=== PATIENT | female | born 1995 | race Caucasian/White ===

== ENCOUNTER 2018-12-17 02:32 | Emergency (ER) | payer OTHER ==
[2018-12-17 03:08] VITALS: TEMP 98.3; BMI 25.4
[2018-12-17] MEDS ORDERED: SODIUM CHLORIDE 1,000 ML IV STA (03:20)
[2018-12-17] MEDS ORDERED: KETOROLAC TROMETHAMINE 30 MG/1 ML VIAL IVPUSH ONE (03:20)
--- NOTE | 2018-12-17 03:26 | PDOC ---
History of Present Illness - General Chief Complaint: Pain Stated Complaint: ABD PAIN Time Seen by Provider: 12/17/18 03:13 History Source: Patient Exam Limitations: No Limitations - History of Present Illness Initial Comments: 23 yo F who denies having any pmh presents to the ER with 3 hours of suprapubic/ lower abdominal pain which radiates to her back. She describes the pain as very sharp in character. She has never felt lower abdominal pain like this before and was very concerned so she came to the ER to be evaluated. The patient states she thinks she is on her period now and she thinks she is having really bad period pains but came to the Er to be evaluated because her period pains have never been this bad before. She states this pain has also made her feel nauseous and she vomited here in the ER. The vomitus was NBNB. LMP: 1 month ago PCP: Justino White PSH: None reported Social Hx: Denies smoking, drinking, or other substance usage. Allergies: NKA, NKDA Past History - Past Medical History Allergies/Adverse Reactions: Allergies Allergy/AdvReac Type Severity Reaction Status Date / Time No Known Allergies Allergy Verified 12/17/18 03:08 Home Medications: Ambulatory Orders Aspirin Coated [Ecotrin -] 234 mg PO ONCE 12/17/18 - Suicide/Smoking/Psychosocial Hx Smoking History: Never smoked Have you smoked in the past 12 months: No Information on smoking cessation initiated: No Hx Alcohol Use: No Drug/Substance Use Hx: No Review of Systems - Review of Systems Able to Perform ROS?: Yes Comments:: CONSTITUTIONAL: Absent: fever, no chills, no fatigue EYES: Absent: visual changes ENT: Absent: ear pain, no sore throat CARDIOVASCULAR: Absent: chest pain, no palpitations RESPIRATORY: Absent: cough, no SOB GI: Present: Abdominal pain, nausea, vomiting. Absent: no constipation, no diarrhea GENITOURINARY: Present: hematuria Absent: dysuria, no frequency MUSKULOSKELETAL: Present: back pain Absent: no arthralgia, no myalgia SKIN: Absent: rash NEURO: Absent: headache *Physical Exam - Vital Signs Last Vital Signs Temp Pulse Resp BP Pulse Ox 98.3 F 72 19 130/97 99 12/17/18 02:32 12/17/18 02:32 12/17/18 02:32 12/17/18 02:32 12/17/18 02:32 - Physical Exam Comments: GENERAL: Well-appearing, well-nourished. No apparent distress. HEENT: Normocephalic, atraumatic. PERRL, EOM intact. CARDIOVASCULAR: Normal S1, S2. Regular rate and rhythm. PULMONARY: No evidence of respiratory distress. Lungs clear to auscultation bilaterally. No wheezing, rales or rhonchi. ABDOMEN: Mild suprapubic and RLQ TTP. Abdomen is still soft, non-distended, and has normal bowel sounds. No rebound or guarding. EXTREMITIES: Normal ROM in all four extremities. No gross deformities. SKIN: Warm, dry. No rash NEUROLOGICAL: No focal neurological deficits. PATIENT REFUSED PELVIC EXAM ED Treatment Course - LABORATORY CBC & Chemistry Diagram: 12/17/18 03:38 12/17/18 03:38 Medical Decision Making - Medical Decision Making 23 yo F who denies having any pmh presents to the ER with 3 hours of suprapubic/ lower abdominal pain which radiates to her back. She describes the pain as very sharp in character. She has never felt lower abdominal pain like this before and was very concerned so she came to the ER to be evaluated. The patient states she thinks she is on her period now and she thinks she is having really bad period pains but came to the Er to be evaluated because her period pains have never been this bad before. She states this pain has also made her feel nauseous and she vomited here in the ER. The vomitus was NBNB. LMP: 1 month ago Vital Signs Temp Pulse Resp BP Pulse Ox 98.3 F 72 19 130/97 99 12/17/18 02:32 12/17/18 02:32 12/17/18 02:32 12/17/18 02:32 12/17/18 02:32 DDx IBNLT: - IUP vs ectopic, UTI/Pylo, menstrual cramps, STD Plan: Labs, Urine, CTAP, analgesia, IV hydration, re-assess. CTAP: normal Labs: Unremarkable HCG negative Patient feels better after analgesia and requests to be discharged. - Will send her home with PCP fu. *DC/Admit/Observation/Transfer Diagnosis at time of Disposition: Menstrual cramp - Discharge Dispostion Disposition: HOME Condition at time of disposition: Improved Decision to Admit order: No - Referrals Referrals: Justino White PA [Primary Care Provider] - - Patient Instructions Printed Discharge Instructions: DI for Dysmenorrhea Additional Instructions: You came into the ER with lower abdominal pain. We looked at your blood and urine and found no abnormalities. We did a cat scan of your abdomen which was normal. Take motrin as needed for pain control. Come back to the ER immediately if your pain worsens, you get a fever, or have any other new or worsening concerns. Thank you for coming to the [facility] ER. We hope you feel better soon! Print Language: AZERI - Post Discharge Activity
[2018-12-17] MEDS ORDERED: KETOROLAC TROMETHAMINE 30 MG/1 ML VIAL ONE (03:32)
[2018-12-17 04:01] LABS: EPI CELLS 0.9 /HPF (0-5/HPF); HYALINE CASTS 0 /lpf (0-8); PH,URINE 5.5 (5.0-8.0); URINE APPEARANCE CLEAR; URINE BACTERIA 24.4 /hpf (NEGATIVE); URINE BILIRUBIN NEGATIVE (NEGATIVE); URINE COLOR YELLOW; URINE GLUCOSE (UA) NEGATIVE (NEGATIVE); URINE KETONE NEGATIVE (NEGATIVE); URINE LEUK ESTERASE NEGATIVE (NEGATIVE); URINE NITRITE NEGATIVE (NEGATIVE); URINE PROTEIN NEGATIVE (NEGATIVE); URINE RBC 787 /hpf (0-4); URINE UROBILINOGEN 0.2 mg/dL (0.2-1.0); URINE WBC 3 /hpf (0-5)
[2018-12-17 04:02] LABS: HEMOGLOBIN 12.3 GM/dL (10.7-15.3)
[2018-12-17 04:09] LABS: BASO % 0.7 % (0-2.0); EOS % 3.8 % (0-4.5); HEMATOCRIT 39.1 % (32.4-45.2); LYMPH % 17.9 % (8-40); MCH 23.6 pg (25.7-33.7); MCHC 31.4 g/dl (32.0-36.0); MEAN PLT VOLUME 8.8 fl (7.5-11.1); NEUT % 70.6 % (42.8-82.8); PLATELET COUNT 390 K/MM3 (134-434); RBC 5.21 M/mm3 (3.60-5.2); WHITE BLOOD COUNT 9.5 K/mm3 (4.0-10.0)
[2018-12-17 04:10] LABS: HCG,QUALITATIVE URINE Negative
[2018-12-17 04:25] LABS: ALBUMIN 3.7 g/dl (3.4-5.0); BILIRUBIN,TOTAL 0.2 mg/dL (0.2-1); CALCIUM 9.1 mg/dL (8.5-10.1); CREATININE 0.6 mg/dL (0.55-1.3); POTASSIUM 4.3 mmol/L (3.5-5.1); TOT PROT 7.9 g/dl (6.4-8.2)
--- NOTE | 2018-12-17 05:23 | PDOC ---
Attending Attestation - Resident Resident Name: Hal Hollis - ED Attending Attestation I have performed the following: I have examined & evaluated the patient, The case was reviewed & discussed with the resident, I agree w/resident's findings & plan - HPI HPI: 12/17/18 05:20 23-year-old female with pelvic pain, right greater than left radiating into the back Patient states that she's had painful menstrual periods in the past but this feels worse. There is no associated fever or vomiting. - Physicial Exam PE: 12/17/18 05:21 GENERAL: Awake, in no acute distress HEAD: No signs of trauma EYES: ENT:clear without exudates. Moist mucosa NECK: Normal ROM, LUNGS:. Normal work of breathing. HEART: Regular rate and rhythm, ABDOMEN: Soft, nondistended Positive McBurney's point tenderness with voluntary guarding CHEST WALL: BACK: No midline tenderness. EXTREMITIES:. No erythema, or tenderness NEUROLOGICAL: Alert, SKIN: Warm, Dry - Medical Decision Making 12/17/18 05:22 23-year-old female with pelvic pain currently menstruating CT scan of the abdomen and pelvis ordered due to right lower quadrant tenderness to rule out appendicitis Plan for pelvic ultrasound if pain persists and CT scan is unrevealing
[2018-12-17 06:14] VITALS: BP 112/68; PULSE 70
== END 2018-12-17 06:14 | disposition home or self-care (01) ==
LOC: JER 02:32
PROC: 3E0333Z Introduction of Anti-inflammatory into Peripheral Vein, Percutaneous Approach (ICD-10-PCS; principal; 2018-12-17)
DX: N94.6 Dysmenorrhea, unspecified (principal)
CPT/HCPCS: 36415; 74177-TC; 80053; 81003; 84703; 85025; 86850; 86900; 86901; 87086; 99282-25; J7030

== ENCOUNTER 2020-05-25 18:25 | Emergency (ER) | payer OTHER ==
[2020-05-25 18:35] VITALS: BP 140/69; PULSE 88; TEMP 97.2; BMI 33.7
[2020-05-25] MEDS ORDERED: ACETAMINOPHEN 500 MG TABLET (FP) PO ONE (18:50)
[2020-05-25] MEDS ORDERED: ACETAMINOPHEN 500 MG TABLET (FP) ONE (18:51)
== END 2020-05-25 20:00 | disposition home or self-care (01) ==
LOC: JERFT 18:25
DX: M54.5 Low back pain (principal)
CPT/HCPCS: 72100-TC-FY; 99283-25

== ENCOUNTER 2022-06-02 18:53 | Emergency (ER) | payer OTHER ==
[2022-06-02 19:23] VITALS: BP 120/66; PULSE 87; RESP 20; TEMP 98.4; BMI 32.5
[2022-06-02] MEDS ORDERED: ONDANSETRON *ODT* 4 MG TABLET SL ONE (21:52)
[2022-06-02 22:02] LABS: EPI CELLS 17 /uL (0-25.1); HYALINE CASTS 1 /uL (0-3.1); URINE APPEARANCE CLEAR; URINE BACTERIA 1136 /uL (0-1359); URINE BILIRUBIN NEGATIVE (NEGATIVE); URINE COLOR YELLOW; URINE GLUCOSE (UA) NEGATIVE (NEGATIVE); URINE KETONE NEGATIVE (NEGATIVE); URINE LEUK ESTERASE 1+ (NEGATIVE); URINE NITRITE NEGATIVE (NEGATIVE); URINE PROTEIN TRACE (NEGATIVE); URINE RBC 21 /uL (0-23.9); URINE WBC 131 /uL (0-25.8)
[2022-06-02 22:03] LABS: HCG,QUALITATIVE URINE Negative
[2022-06-02] MEDS ORDERED: ONDANSETRON *ODT* 4 MG TABLET ONE (22:24)
[2022-06-02] MEDS ORDERED: CEPHALEXIN MONOHYDRATE 500 MG CAPSULE (UD) ONE (22:24)
[2022-06-02] MEDS ORDERED: CEPHALEXIN MONOHYDRATE 500 MG CAPSULE (UD) PO ONE (22:24)
== END 2022-06-02 23:07 | disposition home or self-care (01) ==
LOC: JER 18:53
DX: R11.2 Nausea with vomiting, unspecified (principal); N39.0 Urinary tract infection, site not specified
CPT/HCPCS: 0241U-QW; 81003; 84703; 87086; 99283-25; Q0162

== ENCOUNTER 2023-02-05 13:34 | Emergency (ER) | payer OTHER ==
[2023-02-05 13:43] VITALS: BP 129/64; PULSE 86; RESP 18; TEMP 98.5; BMI 34.7
== END 2023-02-05 15:14 | disposition home or self-care (01) ==
LOC: JERFT 13:34
DX: R09.81 Nasal congestion (principal); J01.90 Acute sinusitis, unspecified; T78.40XA Allergy, unspecified, initial encounter; Z20.822 Contact with and (suspected) exposure to COVID-19
CPT/HCPCS: 0241U-QW; 99283-25